=== PATIENT | female | born 1975 | race Caucasian/White ===

== ENCOUNTER 2024-06-16 15:49 | Emergency (ER) | payer MEDICAID ==
[~2024-06-16] VITALS: Ht 160 cm; Wt 86.2 kg
[2024-06-16 15:52] VITALS: BP_SYST 131; PULSE 66; RESP 16; TEMP 96.9; O2SAT 98
[2024-06-16 16:51] LABS: BASOPHILS % (AUTO) 0.5 % (0.0-2.0); EOSINOPHILS # (AUTO) 0.1 K/uL (0.0-0.4); EOSINOPHILS % (AUTO) 2.2 % (0.0-4.0); HEMOGLOBIN 13.8 g/dL (12.0-16.0); LYMPHOCYTES % (AUTO) 38.5 % (20.5-51.5); MEAN CORPUSCULAR HEMOGLOBIN 29 pg (27-31); MEAN CORPUSCULAR HGB CONC 34 % (32-36); MEAN CORPUSCULAR VOLUME 86 fL (79.0-98.0); MONOCYTES # (AUTO) 0.4 K/uL (0.0-1.0); MONOCYTES % (AUTO) 8.6 % (1.7-9.3); NEUTROPHILS # (AUTO) 2.6 K/uL (1.8-7.7); NEUTROPHILS % (AUTO) 50.2 % (40.0-70.0); PLATELET COUNT (AUTO) 138 K/uL (130-430); RED BLOOD CELL COUNT(AUTO) 4.78 MIL/uL (4.2-6.2); RED CELL DISTRIBUTION WIDTH 15.8 % (9.0-15.0); WHITE BLOOD COUNT (AUTO) 5.2 K/uL (4.8-10.8)
[2024-06-16 17:03] LABS: BILIRUBIN,URINE NEGATIVE (NEGATIVE); BLOOD, URINE NEGATIVE (NEGATIVE); CLARITY/URINE SL CLOUDY (CLEAR); COLOR,URINE YELLOW (YELLOW); GLUCOSE,URINE NEGATIVE (NEGATIVE); KETONES,URINE TRACE (NEGATIVE); LEUKOCYTE ESTERASE ,URINE NEGATIVE (NEGATIVE); NITRITE, URINE NEGATIVE (NEGATIVE); PROTEIN URINE NEGATIVE (NEGATIVE); UROBILINOGEN,URINE 0.2 (0.2-1.0)
[2024-06-16 17:11] LABS: PROTHROMBIN TIME 10.4 SECS (9.5-12.5)
[2024-06-16 17:16] LABS: ALBUMIN 3.2 g/dL (3.4-4.8); CALCIUM 8.4 mg/dL (8.4-11.0); CREATININE 0.59 mg/dL (0.55-1.30); POTASSIUM 3.7 mmol/L (3.5-5.1); TOTAL BILIRUBIN 0.3 mg/dL (0.0-1.0); TOTAL PROTEIN, SERUM 6.2 g/dL (6.4-8.3)
[2024-06-16 17:27] LABS: BILIRUBIN,DIRECT 0.1 mg/dL (0.0-0.3)
[2024-06-16 17:56] LABS: BACTERIA,URINE FEW /HPF (None Seen); RBC,URINE NONE SEEN /HPF (0-3); WBC,URINE 0-3 /HPF (0-3)
[2024-06-16 17:57] LABS: CALCIUM OXALATE CRYSTALS,UR 30-50 /HPF (None Seen); MUCUS,URINE 2+ /LPF (None Seen); YEAST,URINE Moderate /HPF (None Seen)
[2024-06-16] MEDS ORDERED: HYDR-3917 PO ×2 (18:36→18:38)
[2024-06-16] MEDS ORDERED: IBUP-1969 PO (18:36)
[2024-06-16] MEDS ORDERED: OMEP20CA15 PO (18:38)
[2024-06-16 18:40] VITALS: BP_SYST 128; PULSE 65; RESP 12
== END 2024-06-16 18:40 | disposition home or self-care (01) ==
LOC: SED 15:49
DX: R10.84 Generalized abdominal pain (principal); Z98.84 Bariatric surgery status; Z79.899 Other long term (current) drug therapy
CPT/HCPCS: 36415; 80048; 80076; 81000; 81001; 81015; 81025; 82150; 83605; 83690; 85025; 85610; 85730; 99284

== ENCOUNTER 2024-07-17 09:43 | Emergency (ER) | payer MEDICAID ==
[~2024-07-17] VITALS: Ht 160 cm; Wt 88.5 kg
[~2024-07-17 09:43] MED LIST: HYDR-3917 PO; OMEP20CA15 PO
[2024-07-17 10:19] VITALS: BP_SYST 138; PULSE 61; RESP 15; TEMP 97.1; O2SAT 97
[2024-07-17 10:26] VITALS: BP_SYST 138; PULSE 61; RESP 15; TEMP 97.1; O2SAT 97
[2024-07-17] MEDS ORDERED: TRAM50TA2 PO (10:30)
[2024-07-17] MEDS ORDERED: CLIN-142 PO (10:30)
== END 2024-07-17 10:45 | disposition home or self-care (01) ==
LOC: SED 09:43
DX: N76.4 Abscess of vulva (principal); Z79.899 Other long term (current) drug therapy; Z79.2 Long term (current) use of antibiotics
CPT/HCPCS: 99284

== ENCOUNTER 2024-09-30 10:55 | Emergency (ER) | payer MEDICAID ==
[~2024-09-30] VITALS: Ht 160 cm; Wt 88.5 kg
[~2024-09-30 10:55] MED LIST changes: +CLIN-142 PO; +TRAM50TA2 PO
[2024-09-30 11:07] VITALS: BP_SYST 127; PULSE 66; RESP 16; TEMP 97.7; O2SAT 99
[2024-09-30 11:43] LABS: BILIRUBIN,URINE NEGATIVE (NEGATIVE); BLOOD, URINE NEGATIVE (NEGATIVE); CLARITY/URINE CLEAR (CLEAR); COLOR,URINE YELLOW (YELLOW); GLUCOSE,URINE NEGATIVE (NEGATIVE); KETONES,URINE NEGATIVE (NEGATIVE); LEUKOCYTE ESTERASE ,URINE NEGATIVE (NEGATIVE); NITRITE, URINE NEGATIVE (NEGATIVE); PROTEIN URINE NEGATIVE (NEGATIVE); UROBILINOGEN,URINE 0.2 (0.2-1.0)
[2024-09-30 12:03] LABS: COVID19 ANTIGEN SOFIA FIA NEGATIVE (NEGATIVE)
[2024-09-30 12:04] LABS: BASOPHILS % (AUTO) 0.5 % (0.0-2.0); EOSINOPHILS # (AUTO) 0.1 K/uL (0.0-0.4); EOSINOPHILS % (AUTO) 1.6 % (0.0-4.0); HEMATOCRIT 39.1 % (36-48); HEMOGLOBIN 12.8 g/dL (12.0-16.0); LYMPHOCYTES # (AUTO) 1.8 K/uL (1.0-5.5); LYMPHOCYTES % (AUTO) 43.2 % (20.5-51.5); MEAN CORPUSCULAR HEMOGLOBIN 28 pg (27-31); MEAN CORPUSCULAR HGB CONC 33 % (32-36); MEAN CORPUSCULAR VOLUME 86 fL (79.0-98.0); MONOCYTES # (AUTO) 0.4 K/uL (0.0-1.0); MONOCYTES % (AUTO) 8.9 % (1.7-9.3); NEUTROPHILS # (AUTO) 1.9 K/uL (1.8-7.7); NEUTROPHILS % (AUTO) 45.8 % (40.0-70.0); PLATELET COUNT (AUTO) 131 K/uL (130-430); RED BLOOD CELL COUNT(AUTO) 4.54 MIL/uL (4.2-6.2); RED CELL DISTRIBUTION WIDTH 14.2 % (9.0-15.0); WHITE BLOOD COUNT (AUTO) 4.2 K/uL (4.8-10.8)
[2024-09-30 12:12] LABS: BARBITURATE, URINE NEGATIVE (NEG <=200); BENZODIAZEPINE, URINE NEGATIVE (NEG <=150); CANNABINOID, URINE NEGATIVE (NEG <=50); COCAINE, URINE NEGATIVE (NEG <=150); METHAMPHETAMINES SCREEN,URINE NEGATIVE (NEG <=500); OPIATE, URINE NEGATIVE (NEG <=100); PHENCYCLIDINE SCREEN,URINE NEGATIVE (NEG <=25); URINE AMPHETAMINE NEGATIVE (NEG <=500); URINE METHADONE NEGATIVE (NEG <=200); URINE OXYCODONE SCREEN NEGATIVE (NEG <=100)
[2024-09-30 12:13] LABS: UR TRICYCLIC ANTIDEPRESSANTS NEGATIVE (NEG <=300)
[2024-09-30] MEDS: DEXAMETHASONE SOD PHOSPHATE 4 MG/ML VIAL IM ONE (12:13)
[2024-09-30 12:14] LABS: INFLUENZA TYPE A Negative (NEGATIVE); INFLUENZA TYPE B NEGATIVE (NEGATIVE)
[2024-09-30] MEDS: KETOROLAC TROMETHAMINE 30 MG VIAL IM ONE (12:14)
[2024-09-30] MEDS: ACETAMINOPHEN 500 MG TABLET PO ONE (12:15)
[2024-09-30 12:33] LABS: ALBUMIN 3.1 g/dL (3.4-4.8); CALCIUM 8.7 mg/dL (8.4-11.0); CREATININE 0.73 mg/dL (0.55-1.30); POTASSIUM 4.3 mmol/L (3.5-5.1); TOTAL BILIRUBIN 0.3 mg/dL (0.0-1.0); TOTAL PROTEIN, SERUM 6.3 g/dL (6.4-8.3)
[2024-09-30 15:54] VITALS: BP_SYST 138; PULSE 88; RESP 16; TEMP 98; O2SAT 98
== END 2024-09-30 13:24 | disposition home or self-care (01) ==
LOC: SED 10:55
DX: R53.1 Weakness (principal); R53.83 Other fatigue; J02.9 Acute pharyngitis, unspecified; F17.200 Nicotine dependence, unspecified, uncomplicated; Z20.822 Contact with and (suspected) exposure to COVID-19; Z71.6 Tobacco abuse counseling; Z79.899 Other long term (current) drug therapy; Z79.2 Long term (current) use of antibiotics
CPT/HCPCS: 99285; 71045; 87426; 80307; 80053; 81001; 85025; 36415; 93005; 96372; 87804 ×2; 81003; J1100; J1885